=== PATIENT | female | born 1995 | race Caucasian/White ===

== ENCOUNTER 2021-06-24 23:48 | Inpatient (IN) | payer OTHER, SELFPAY ==
[2021-06-25 00:10] VITALS: BMI 27.5
[2021-06-25] MEDS ORDERED: Ibuprofen 800 MG TAB PO PRN (01:05)
[2021-06-25] MEDS ORDERED: hydrALAZINE 20 MG/ML VIAL SLOW IVP PRN ×2 (01:05→07:05)
[2021-06-25] MEDS ORDERED: HYDROcodone/Acetaminophen 5/325 mg Tablet PO PRN ×3 (01:05→07:05)
[2021-06-25] MEDS ORDERED: Butorphanol Tartrate 1 MG/ML VIAL SLOW IVP PRN (01:05)
[2021-06-25] MEDS ORDERED: Ondansetron PF 4 MG/2 ML Vial IVP PRN ×2 (01:05→07:05)
[2021-06-25] MEDS ORDERED: Lidocaine 1% (PF) 30 ML VIAL SC PRN (01:05)
[2021-06-25] MEDS ORDERED: Lactated Ringer's 1,000 ML IV SCH ×2 (01:15)
[2021-06-25] MEDS ORDERED: NS w/ Oxytocin 30 units 500 ML IV SCH ×2 (01:15→07:05)
[2021-06-25 01:28] LABS: Hemoglobin 16.2 g/dL (12.0-15.5); Mean Corpuscular HGB CONC 35.8 g/dL (32.0-36.0); Mean Corpuscular Volume 86.6 fl (81.6-98.3); Mean Platelet Volume 10.9 fl (7.4-10.4); Platelet Count 198 10x3/uL (150-450); Red Blood Cell (RBC) Count 5.23 10x6/uL (3.90-5.03); White Blood Cell (WBC) Count 14.6 10x3/uL (3.5-10.5)
[2021-06-25 02:05] LABS: Hep B Surf Ag Non-Reactive S/CO (NonReactive); Syphilis Antibody Nonreactive (Nonreactive); Syphilis Antibody Index 0.08 S/CO (<1.00 Non-Reactive)
[2021-06-25 02:18] LABS: HBSAg Index 0.17 S/CO (0-0.99)
[2021-06-25 03:07] LABS: SARS-CoV-2 NAA Rapid Test Not Detected (NotDetected)
[2021-06-25] MEDS ORDERED: Bisacodyl 10 MG SUPP PR PRN (07:05)
[2021-06-25] MEDS ORDERED: Milk Of Magnesia 30 ML UDCUP PO PRN (07:05)
[2021-06-25] MEDS ORDERED: Benzocaine-Menthol 82.5 ML CAN TOP PRN (07:05)
[2021-06-25] MEDS ORDERED: Methylergonovine 0.2 MG/ML VIAL IM PRN (07:05)
[2021-06-25] MEDS ORDERED: Lanolin Ointment 7 GM TUBE TOP PRN (07:05)
[2021-06-25] MEDS ORDERED: Boostrix 0.5 ML (Tdap) VIAL IM ONE (07:05)
[2021-06-25] MEDS ORDERED: Ibuprofen 800 MG TAB PO SCH (07:15)
[2021-06-25] MEDS: Docusate 100 MG CAP PO SCH ×2 (09:35→21:28)
[2021-06-25] MEDS: Prenatal Vitamin 1 TAB PO SCH (09:36)
[2021-06-25] MEDS: Ferrous Sulfate 325 MG TAB PO SCH ×2 (09:36→17:51)
[2021-06-25] MEDS: Ibuprofen 800 MG TAB PO SCH ×2 (13:46→21:28)
[2021-06-26] MEDS: Ibuprofen 800 MG TAB PO SCH (06:08)
[2021-06-26] MEDS: Ferrous Sulfate 325 MG TAB PO SCH (09:32)
[2021-06-26] MEDS: Prenatal Vitamin 1 TAB PO SCH (09:32)
[2021-06-26] MEDS: Docusate 100 MG CAP PO SCH (09:33)
[2021-06-26 09:57] VITALS: BP 116/56; TEMP 98.2
== END 2021-06-26 12:40 | disposition home or self-care (01) | DRG 768 ==
LOC: CSHLD/OP 23:48 → CSHLD 06-25 00:30 → CSHPP 06-25 07:55
PROVIDERS: ADMIT Obstetrics & Gynecology; ATTEND Obstetrics & Gynecology
PROC: 10E0XZZ Delivery of Products of Conception, External Approach (ICD-10-PCS; principal; 2021-06-25)
PROC: 0DQR0ZZ Repair Anal Sphincter, Open Approach (ICD-10-PCS; 2021-06-25)
DX: O77.0 Labor and delivery complicated by meconium in amniotic fluid (principal); Z37.0 Single live birth; O70.20 Third degree perineal laceration during delivery, unspecified; Z20.822 Contact with and (suspected) exposure to COVID-19; Z3A.40 40 weeks gestation of pregnancy; Z88.1 Allergy status to other antibiotic agents; Z88.8 Allergy status to other drugs, medicaments and biological substances
CPT/HCPCS: 36415; 85027; 86780; 86850; 86900; 86901; 87340; 99285; J0595; J2001; J2590; U0002

== ENCOUNTER 2023-01-28 22:21 | Inpatient (IN) | payer OTHER, SELFPAY ==
[2023-01-28] MEDS ORDERED: hydrALAZINE 20 MG/ML VIAL SLOW IVP PRN (22:31)
[2023-01-28] MEDS ORDERED: Tranexamic Acid 1,000 MG/10 ML VIAL IVP PRN (22:53)
[2023-01-28] MEDS ORDERED: Acetaminophen 500 MG TAB PO PRN (22:53)
[2023-01-28] MEDS ORDERED: Ondansetron PF 4 MG/2 ML Vial IVP PRN (22:53)
[2023-01-28] MEDS ORDERED: Promethazine HCl 25 MG/ML VIAL IM PRN (22:53)
[2023-01-28] MEDS ORDERED: Lidocaine 1% (PF) 30 ML VIAL SC PRN (22:53)
[2023-01-28] MEDS ORDERED: Misoprostol 200 MCG TAB PR PRN (22:53)
[2023-01-28] MEDS ORDERED: Carboprost 250 MCG/ML AMP IM PRN (22:53)
[2023-01-28] MEDS ORDERED: Diphenoxylate HCl/Atropine Tablet PO PRN (22:53)
[2023-01-28] MEDS ORDERED: Ibuprofen 800 MG TAB PO PRN (22:53)
[2023-01-28] MEDS ORDERED: Methylergonovine 0.2 MG/ML VIAL IM PRN (22:53)
[2023-01-28] MEDS ORDERED: Docusate 100 MG CAP PO PRN (22:53)
[2023-01-28] MEDS ORDERED: NS w/ Oxytocin 30 units 500 ML IV SCH ×2 (23:00)
[2023-01-28] MEDS ORDERED: fentaNYL/Ropivacaine Epidural 100 ML ONE (23:07)
[2023-01-28 23:14] VITALS: BMI 27.2
[2023-01-28 23:15] LABS: Hematocrit 39.8 % (34.9-44.5); Hemoglobin 13.9 g/dL (12.0-15.5); Mean Corpuscular HGB CONC 34.9 g/dL (32.0-36.0); Mean Corpuscular Hemoglobin 29.6 pg (27.0-33.0); Mean Corpuscular Volume 84.7 fl (81.6-98.3); Mean Platelet Volume 11.4 fl (7.4-10.4); Platelet Count 163 10x3/uL (150-450); RBC Distribution Width 12.9 % (11.5-14.5); White Blood Cell (WBC) Count 11.4 10x3/uL (3.5-10.5)
[2023-01-28 23:47] LABS: HBSAg Index 0.19 S/CO (0-0.99); Hep B Surf Ag - L&D Non-Reactive S/CO (NonReactive); Syphilis Antibody Nonreactive (Nonreactive); Syphilis Antibody Index 0.13 S/CO (<1.00 Non-Reactive)
[2023-01-29] MEDS ORDERED: diphenhydrAMINE 50 MG/ML VIAL IVP PRN (00:13)
[2023-01-29] MEDS ORDERED: Naloxone HCl 0.4 mg/ml Vial IVP PRN ×2 (00:13)
[2023-01-29] MEDS ORDERED: Promethazine HCl 25 MG/ML VIAL IM PRN (00:13)
[2023-01-29] MEDS ORDERED: Ondansetron HCl/PF 4 MG/2 ML Vial IVP PRN (00:13)
[2023-01-29] MEDS ORDERED: Meperidine HCl/PF 25 MG/ML VIAL SLOW IVP PRN (00:13)
[2023-01-29] MEDS ORDERED: Fentanyl 50 MCG/1 ML VIAL SLOW IVP PRN (00:13)
[2023-01-29] MEDS ORDERED: Acetaminophen 325 MG TAB PO PRN (00:13)
[2023-01-29] MEDS ORDERED: Moisturizing Cream (Eucerin) 113 GM JAR TOP PRN (00:13)
[2023-01-29] MEDS ORDERED: Ondansetron PF 4 MG/2 ML Vial IVP PRN (00:13)
[2023-01-29] MEDS ORDERED: Lactated Ringer's 500 ML IV PRN (00:13)
[2023-01-29] MEDS ORDERED: ePHEDrine Sulfate 50 MG/10 ML VIAL SLOW IVP PRN (00:13)
[2023-01-29] MEDS ORDERED: Communication Order-Pharmacy FS SCH (00:15)
[2023-01-29] MEDS ORDERED: Ketorolac Tromethamine 30 MG/ML VIAL IVP SCH (00:15)
[2023-01-29] MEDS ORDERED: fentaNYL 2 mcg/Ropivacaine 0.2% Epidural 100 ML CADD EPIDURAL SCH (00:15)
[2023-01-29 05:17] LABS: RapidComm Collect By CBN; pH (Cord, venous) 7.265 (7.250-7.350)
[2023-01-29] MEDS ORDERED: Milk Of Magnesia 30 ML UDCUP PO PRN (06:58)
[2023-01-29] MEDS ORDERED: Bisacodyl 10 MG SUPP PR PRN (06:58)
[2023-01-29] MEDS ORDERED: Boostrix 0.5 ML (Tdap) VIAL (>/=7 yrs of age) IM ONE (06:58)
[2023-01-29] MEDS ORDERED: NS w/ Oxytocin 30 units 500 ML IV SCH (06:58)
[2023-01-29] MEDS ORDERED: hydrALAZINE 20 MG/ML VIAL SLOW IVP PRN (06:58)
[2023-01-29] MEDS ORDERED: Benzocaine-Menthol 82.5 ML CAN TOP PRN (06:58)
[2023-01-29] MEDS ORDERED: Misoprostol 200 MCG TAB VAG PRN (06:58)
[2023-01-29] MEDS ORDERED: Ibuprofen 800 MG TAB PO SCH ×2 (07:15→14:00)
[2023-01-29] MEDS: Docusate 100 MG CAP PO SCH ×2 (09:10→21:26)
[2023-01-29] MEDS: Ferrous Sulfate 325 MG TAB PO SCH ×2 (09:11→14:26)
[2023-01-29] MEDS: Prenatal Vitamin 1 TAB PO SCH (09:11)
[2023-01-29] MEDS: Ibuprofen 800 MG TAB PO SCH (16:31)
[2023-01-30] MEDS ORDERED: HYDROcodone/Acetaminophen 5/325 mg Tablet PO PRN ×2 (00:30)
[2023-01-30] MEDS: Ibuprofen 800 MG TAB PO SCH ×2 (01:07→08:51)
[2023-01-30 08:19] VITALS: BP 107/61; TEMP 98.1
[2023-01-30] MEDS: Docusate 100 MG CAP PO SCH (09:52)
[2023-01-30] MEDS: Prenatal Vitamin 1 TAB PO SCH (09:52)
[2023-01-30] MEDS: Ferrous Sulfate 325 MG TAB PO SCH (09:52)
== END 2023-01-30 13:00 | disposition home or self-care (01) | DRG 807 ==
LOC: CSHLD/OP 22:21 → CSHLD 22:50 → CSHPP 01-29 08:57
PROVIDERS: ADMIT Obstetrics & Gynecology; ATTEND Obstetrics & Gynecology
PROC: 10E0XZZ Delivery of Products of Conception, External Approach (ICD-10-PCS; principal; 2023-01-29)
PROC: 0HQ9XZZ Repair Perineum Skin, External Approach (ICD-10-PCS; 2023-01-29)
PROC: 4A033R1 Measurement of Arterial Saturation, Peripheral, Percutaneous Approach (ICD-10-PCS; 2023-01-29)
PROC: 4A043R1 Measurement of Venous Saturation, Peripheral, Percutaneous Approach (ICD-10-PCS; 2023-01-29)
DX: O77.0 Labor and delivery complicated by meconium in amniotic fluid (principal); Z37.0 Single live birth; O70.0 First degree perineal laceration during delivery; Z3A.39 39 weeks gestation of pregnancy; Z88.1 Allergy status to other antibiotic agents
CPT/HCPCS: 51702; 82805; 85027; 86780; 86850; 86900; 86901; 87340; 99285